=== PATIENT | female | born 1980 | race Caucasian/White ===

== ENCOUNTER 2023-03-25 15:46 | Emergency (ER) | payer OTHER ==
[2023-03-25 15:57] VITALS: RESP 18; TEMP 98
[2023-03-25] MEDS ORDERED: amLODIPine BESYLATE 5 MG TABLET (FP) PO ONE (17:49)
[2023-03-25 18:29] LABS: POTASSIUM 3.7 mmol/L (3.5-5.1)
[2023-03-25] MEDS ORDERED: amLODIPine BESYLATE 5 MG TABLET (FP) ONE (18:29)
[2023-03-25 18:31] LABS: CALCIUM 9.6 mg/dL (8.5-10.1)
[2023-03-25 18:32] LABS: BLOOD UREA NITROGEN 12.9 mg/dL (7-18)
[2023-03-25 18:35] LABS: CREATININE 0.8 mg/dL (0.55-1.3)
[2023-03-25 18:37] LABS: BILIRUBIN,TOTAL 0.8 mg/dL (0.2-1); TOT PROT 7.8 g/dl (6.4-8.2)
[2023-03-25 19:28] LABS: EPI CELLS 13 /uL (0-25.1); HYALINE CASTS 0 /uL (0-3.1); PH,URINE 5.5 (5.0-8.0); URINE APPEARANCE CLEAR; URINE BACTERIA 363 /uL (0-1359); URINE BILIRUBIN NEGATIVE (NEGATIVE); URINE COLOR YELLOW; URINE GLUCOSE (UA) NEGATIVE (NEGATIVE); URINE KETONE NEGATIVE (NEGATIVE); URINE LEUK ESTERASE TRACE (NEGATIVE); URINE NITRITE NEGATIVE (NEGATIVE); URINE PROTEIN NEGATIVE (NEGATIVE); URINE RBC 7 /uL (0-23.9); URINE UROBILINOGEN 0.2 mg/dL (0.2-1.0); URINE WBC 11 /uL (0-25.8)
[2023-03-25] MEDS ORDERED: LOSARTAN 50MG/HCTZ 12.5MG 1 TAB PO ONE (19:56)
[2023-03-25 19:57] VITALS: BP 181/108; PULSE 68
== END 2023-03-25 20:17 | disposition home or self-care (01) ==
LOC: JER 15:46
DX: I10 Essential (primary) hypertension (principal)
CPT/HCPCS: 36415; 80053; 81003; 84484; 93005; 93010; 99284-25